=== PATIENT | female | born 1995 | race African-American/Black ===

== ENCOUNTER 2020-08-04 20:58 | Emergency (ER) | payer OTHER ==
[~2020-08-04] VITALS: Ht 162.6 cm; Wt 67.3 kg
[2020-08-04 21:09] VITALS: Ht 162.6 cm; Wt 67.3 kg
[2020-08-04] MEDS ORDERED: DICLOFENAC SODI50 MG PO (21:45)
[2020-08-04] MEDS ORDERED: ZOFRAN ODT4 MG/UDTAB PO (21:45)
[2020-08-04] MEDS ORDERED: CLEOCIN HCL300 MG PO (21:45)
[2020-08-04] MEDS ORDERED: CEPHALEXIN500 M1 PO (21:45)
[2020-08-04] MEDS ORDERED: VOLTAREN75 MG PO (21:48)
[2020-08-04 22:42] VITALS: BP 128/74
== END 2020-08-04 22:44 | disposition home or self-care (01) ==
LOC: D.ER 20:58
DX: L73.9 Follicular disorder, unspecified (principal); L02.91 Cutaneous abscess, unspecified